=== PATIENT | female | born 1995 | race Caucasian/White ===

== ENCOUNTER 2017-03-24 23:41 | Inpatient (IN) | payer OTHER ==
[~2017-03-24] VITALS: Ht 165.1 cm; Wt 58.3 kg
[~2017-03-24 23:41] MED LIST: ABILIFY5 M1 PO
[2017-03-25 00:37] LABS: BASOPHIL % 0.4 % (0-2); PLATELET COUNT 268 x10^3mcL (130-400); RED CELL DISTRIBUTION WIDTH 14.2 % (11.5-14.5)
[2017-03-25 01:17] LABS: microscopic required? YES
[2017-03-25 01:18] LABS: UA SPECIFIC GRAVITY 1.015 (1.005-1.035); urine erythrocyte TRACE (NEGATIVE)
[2017-03-25 01:22] LABS: AMPHETAMINE QUAL UR NONE DETECTED (NEG <=1000)
[2017-03-25 01:24] LABS: CALCIUM 8.9 mg/dL (8.5-10.1); CARBON DIOXIDE 28.8 mmol/L (21-32); CHLORIDE SERUM 106 mmol/L (98-107); CREATININE SERUM 0.8 mg/dL (0.6-1.0); GFR1 > 60 mL/min; GLUCOSE SERUM 109 mg/dL (74-106); POTASSIUM SERUM 3.4 mmol/L (3.5-5.1)
[2017-03-25 01:26] LABS: SODIUM SERUM 142 mmol/L (136-145)
[2017-03-25 01:29] LABS: ALBUMIN 3.6 g/dL (3.4-5.0); ALKALINE PHOSPHATASE 70 U/L (46-116); ALT/SGPT 26 U/L (14-59); AST/SGOT 23 U/L (15-37); BILIRUBIN TOTAL 0.29 mg/dL (0.20-1.00); TOTAL PROTEIN, SERUM 7.1 g/dL (6.4-8.2)
[2017-03-25 03:31] VITALS: BP 105/65
[2017-03-25 03:46] LABS: T3 TOTAL 0.77 ng/mL
[2017-03-25 04:05] LABS: CHOLESTEROL/HDL RATIO 2.3; MAGNESIUM 1.8 mg/dL (1.8-2.4); PHOSPHOROUS 3.8 mg/dL (2.5-4.9)
[2017-03-25 04:31] LABS: FREE T4 0.81 ng/dL (0.76-1.46); FREE THYROXINE INDEX 2.2 ug/dL (1.4-4.5)
[2017-03-25 05:50] VITALS: BP 104/67
[2017-03-25 08:00] VITALS: BP 106/58
[2017-03-25 11:44] VITALS: Ht 165.1 cm; Wt 58.3 kg
[2017-03-25 15:30] VITALS: BP 102/65
[2017-03-26 05:49] VITALS: BP 104/55
[2017-03-26 07:40] LABS: BASOPHIL % 0.5 % (0-2); PLATELET COUNT 232 x10^3mcL (130-400)
[2017-03-26 07:45] LABS: RED CELL DISTRIBUTION WIDTH 14.8 % (11.5-14.5)
[2017-03-26 07:52] LABS: CALCIUM 8.1 mg/dL (8.5-10.1); CARBON DIOXIDE 23.5 mmol/L (21-32); CHLORIDE SERUM 112 mmol/L (98-107); CREATININE SERUM 0.6 mg/dL (0.6-1.0); GFR1 > 60 mL/min; GLUCOSE SERUM 78 mg/dL (74-106); POTASSIUM SERUM 3.4 mmol/L (3.5-5.1); SODIUM SERUM 141 mmol/L (136-145)
[2017-03-26 08:00] VITALS: BP 105/65
[2017-03-26 13:47] VITALS: BP 94/56
== END 2017-03-26 18:22 | disposition left against medical advice (07) | DRG 812 ==
LOC: ED 23:41 → DU 03-25 01:53
PROVIDERS: Specialist; ADMIT Family Medicine
DX: T42.4X2A Poisoning by benzodiazepines, intentional self-harm, initial encounter (principal); N17.0 Acute kidney failure with tubular necrosis; G92 Toxic encephalopathy; R45.851 Suicidal ideations; F31.9 Bipolar disorder, unspecified; F12.90 Cannabis use, unspecified, uncomplicated; F17.200 Nicotine dependence, unspecified, uncomplicated; E87.6 Hypokalemia; R31.9 Hematuria, unspecified; N39.0 Urinary tract infection, site not specified; Z53.21 Procedure and treatment not carried out due to patient leaving prior to being seen by health care provider; Y92.89 Other specified places as the place of occurrence of the external cause; Z91.5 Personal history of self-harm
CPT/HCPCS: 83880; 84439; G0480; J1630; J3486; J7030; Q0092